=== PATIENT | male | born 1980 | race Caucasian/White ===

== ENCOUNTER 2023-05-17 23:41 | Emergency (ER) | payer SELFPAY ==
[~2023-05-17] VITALS: Ht 177.8 cm; Wt 73.0 kg
[2023-05-17 23:55] VITALS: O2SAT 98
[2023-05-18] MEDS: SODIUM CHLORIDE 0.9% 1,000 ML IV ONE
[2023-05-18 00:50] VITALS: TEMP 97.8
[2023-05-18 01:13] LABS: BASOPHILS % 0.5 % (0.0-2.0); EOSINOPHILS % 6.9 % (0.0-5.0); HEMATOCRIT. 38.4 % (42.0-52.0); HEMOGLOBIN. 12.9 g/dL (14.0-18.0); LYMPHOCYTES % 31.1 % (20.0-50.0); MEAN CORPUSCULAR HGB CONC 33.6 g/dL (31.0-37.0); MEAN CORPUSCULAR VOLUME 98.1 fL (80.0-94.0); NEUTROPHILS % 56.5 % (40.0-76.0); PLATELET 300 x1000/uL (130-400); RED BLOOD CELL COUNT 3.92 mill/uL (4.7-6.1); RED CELL DISTRIBUTION WIDTH 12.4 % (11.6-14.6); WHITE BLOOD COUNT 7.6 x1000/uL (4.5-11.0)
[2023-05-18 01:42] LABS: ACETAMINOPHEN < 2 ug/mL (10-30); ALANINE AMINOTRANSFERASE 19 IU/L (10-49); ALBUMIN 5.2 g/dL (3.2-4.8); ASPARTATE AMINOTRANSFERASE 21 IU/L (<34); BILIRUBIN TOTAL 0.4 mg/dL (0.1-1.0); CALCIUM 8.9 mg/dL (8.7-10.4); CARBON DIOXIDE 25 mEq/L (21-32); CHLORIDE 104 mEq/L (98-107); CREATININE 0.9 mg/dL (0.6-1.3); ETHANOL BLOOD 348 mg/dL (<10); GLUCOSE 106 mg/dL (70-105); POTASSIUM 3.4 mEq/L (3.5-5.1); PROTEIN TOTAL 8.3 g/dL (6.0-8.3); SODIUM 138 mEq/L (136-145); UREA NITROGEN BLOOD 12 mg/dL (9-23)
[2023-05-18 01:50] VITALS: BP 115/59; PULSE 84; RESP 12
== END 2023-05-18 02:00 | disposition home or self-care (01) ==
LOC: ER 23:41
DX: F10.129 Alcohol abuse with intoxication, unspecified (principal); D64.9 Anemia, unspecified; Y90.8 Blood alcohol level of 240 mg/100 ml or more
CPT/HCPCS: 36415; 96360; 99284; 80053; 80307; 80329; 80320; 85025; J7030; Z7610; G0480